=== PATIENT | male | born 1985 | race Caucasian/White ===

== ENCOUNTER 2022-06-14 14:37 | Emergency (ER) | payer OTHER ==
[2022-06-14] MEDS ORDERED: ATARAX 25 MG PO ONE (15:03)
--- NOTE | 2022-06-14 15:08 | ERPHSYRPT ---
- History of Present Illness Source: patient Exam Limitations: no limitations Patient Subjective Stated Complaint: Pt states "My dad is about to pass and I have been in a panic attack for days now." Triage Nursing Assessment: Pt presented alert and oriented X 3, skin wpd.Pt ambulates with an upright steady gait, able to speak in clear full sentences. Pt in no apparent respiratory distress. Pt extremely anxious. Physician History: 36 yo wm w anxiety due to father w terminal illness who is hospitalized. Pt denies suicidal/homicidal ideation. [facility] saw pt and sent him to the ER. He denies h/o anxiety/suicidal attempt-ideation. Timing/Duration: yesterday Severity of Symptoms-Max: moderate Severity of Symptoms-Current: mild Context related to: parent (Parent w terminal illness) Suicidal thoughts: other (Denies) Associated Symptoms: anxiety Previous symptoms: no prior history Allergies/Adverse Reactions: tomato Allergy (Verified 09/26/15 23:13) Hx Tetanus, Diphtheria Vaccination/Date Given: Yes Hx Influenza Vaccination/Date Given: No Hx Pneumococcal Vaccination/Date Given: No Immunizations Up to Date: Yes Travel Risk - International Travel Have you traveled outside of the country in past 3 weeks: No - Coronavirus Screening Are you exhibiting any of the following symptoms?: No Close contact with a COVID-19 positive Pt in past 14-21 Days: No - Vaccine Status Have you recieved a Covid-19 vaccination: Yes [employer]: [employer] - Vaccination Dates Date of 2cond Vaccination (if applicable): 2020 - Past Medical History Pertinent Past Medical History: Yes Psycho-Social History: Attention Deficit Disorder Other Medical History: kidney stones - Past Surgical History Past Surgical History: No - Social History Smoking Status: Current every day smoker How long have you smoked: 18 yrs Exposure to second hand smoke: No Drug Use: marijuana Patient Lives Alone: No - Review of Systems Constitutional: No Symptoms Eyes: No Symptoms Ears, Nose, & Throat: No Symptoms Respiratory: No Symptoms Cardiac: No Symptoms Abdominal/Gastrointestinal: No Symptoms Genitourinary Symptoms: No Symptoms Musculoskeletal: No Symptoms Skin: No Symptoms Neurological: No Symptoms Endocrine: No Symptoms Hematologic/Lymphatic: No Symptoms Immunological/Allergic: No Symptoms - Nursing Vital Signs Nursing Vital Signs: Initial Vital Signs Temperature 99.0 F 06/14/22 14:41 Pulse Rate 88 06/14/22 14:41 Respiratory Rate 22 06/14/22 14:41 Blood Pressure 155/101 06/14/22 14:41 O2 Sat by Pulse Oximetry 95 06/14/22 14:41 Pain Scale Pain Intensity 0 Hypertensive - Physical Exam General Appearance: no apparent distress, alert Eyes, Ears, Nose, Throat Exam: normal ENT inspection, TMs normal, pharynx normal, moist mucous membranes Neck Exam: normal inspection, non-tender, supple, full range of motion, No Brudzinski, No Kernig's, No meningismus Respiratory Exam: normal breath sounds, lungs clear, airway intact Cardiovascular Exam: regular rate/rhythm, normal heart sounds, normal peripheral pulses, capillary refill <2 sec, No murmur Gastrointestinal/Abdominal Exam: soft, normal bowel sounds, No tenderness Extremities Exam: normal inspection, normal range of motion, No evidence of injury Peripheral Pulses: carotid (R): 2+, carotid (L): 2+ Current Suicidality: denies suicide plan, No has suicide plan Neurological Exam: alert, normal mood/affect, calm, tax assistant II-XII nml as tested, oriented x 3 Appearance: appropriate appearance, appropriate insight, neat, no memory impairment, denies illness Behavior/Eye Contact/Speech: alert & cooperative, good eye contact, normal speech Thoughts/Hallucinations: normal thought pattern, no apparent hallucination, No auditory hallucinations, No delusions, No flight of ideas, No grandiose Skin Exam: normal color, warm, dry SpO2 Interpretation: normal SpO2: 95 O2 Delivery: Room Air - Course Nursing assessment & vital signs reviewed: Yes Ordered Tests: Medication Summary Discontinued Medications Generic Name Dose Route Start Last Admin Trade Name Barbara PRN Reason Stop Dose Admin Hydroxyzine HCl 50 mg 06/14/22 15:03 06/14/22 15:10 Hydroxyzine Hcl 25 Mg Tablet PO 06/14/22 15:04 50 mg STAT ONE Administration Hydroxyzine HCl Confirm 06/14/22 15:10 Hydroxyzine Hcl 25 Mg Tablet Administered 06/14/22 15:11 Dose 50 mg .ROUTE .STK-MED ONE - Progress Progress Note: 06/14/22 15:10 50mg po Vistaril Pt most likely has anxiety/grief reaction due to father's terminal illness. He is not suicidal or homicidal and has been seen by the [facility]. Counseled pt/family regarding: diagnosis, need for follow-up - Departure Departure Disposition: Home Clinical Impression: Grief reaction, Anxiety Condition: Stable Critical Care Time: No Referrals: DOCTOR,NO FAMILY [Primary Care Provider] - Follow up/PCP as directed Instructions: Anxiety, Adult (DC) Additional Instructions: Vistaril as needed Follow up with the [facility] Return to ER as needed Prescriptions: hydrOXYzine pamoate [Vistaril] 50 mg PO TID PRN PRN #15 cap PRN Reason: Anxiety
[2022-06-14] MEDS ORDERED: ATARAX 25 MG ONE (15:10)
[2022-06-14 15:31] VITALS: BP 147/96; PULSE 87
[2022-06-14 15:51] VITALS: O2SAT 95
== END 2022-06-14 15:32 | disposition home or self-care (01) ==
LOC: ED 14:37
DX: F43.22 Adjustment disorder with anxiety (principal); Z63.4 Disappearance and death of family member; Z72.0 Tobacco use
CPT/HCPCS: 99281; A9270-GY

== ENCOUNTER 2024-02-24 09:44 | Emergency (ER) | payer BC, OTHER ==
--- NOTE | 2024-02-24 09:53 | ERPHSYRPT ---
- History of Present Illness Time Seen by Provider: 02/24/24 09:49 Source: patient Exam Limitations: no limitations Physician History: 38-year-old male presents to our ED with testicular pain that started 2 days ago. Patient states pain got acutely worse today. Pain described as an ache that is localized to his left testicle radiates to his back. Patient also concern for kidney stones. No trauma no fever. No nausea vomiting or diaphoresis. No dysuria or obvious hematuria. Symptoms are constant. Symptoms are moderate to severe in intensity. Movement of the testicles reproduce pain. Portions of this note were created with voice recognition technology. There may be grammatical, spelling, punctuation or sound alike errors Timing/Duration: today Severity: moderate Associated Symptoms: denies symptoms Allergies/Adverse Reactions: codeine Allergy (Verified 02/24/24 09:49) tomato Allergy (Verified 02/24/24 09:49) Hx Tetanus, Diphtheria Vaccination/Date Given: Yes Hx Influenza Vaccination/Date Given: No Hx Pneumococcal Vaccination/Date Given: No - Review of Systems Constitutional: No Symptoms, No Fever, No Chills Eyes: No Symptoms Ears, Nose, & Throat: No Symptoms Respiratory: No Symptoms, No Cough, No Dyspnea Cardiac: No Symptoms, No Chest Pain, No Edema, No Syncope Abdominal/Gastrointestinal: No Symptoms, No Abdominal Pain, No Nausea, No Vomiting, No Diarrhea Genitourinary Symptoms: No Symptoms, No Dysuria Musculoskeletal: No Symptoms, No Back Pain, No Neck Pain Skin: No Symptoms, No Rash Neurological: No Symptoms, No Dizziness, No Focal Weakness, No Sensory Changes Psychological: No Symptoms Endocrine: No Symptoms Hematologic/Lymphatic: No Symptoms Immunological/Allergic: No Symptoms All Other Systems: Reviewed and Negative - Past Medical History Pertinent Past Medical History: Yes Psycho-Social History: Attention Deficit Disorder Other Medical History: kidney stones - Past Surgical History Past Surgical History: No - Social History Smoking Status: Current every day smoker How long have you smoked: 18 yrs Exposure to second hand smoke: No Drug Use: marijuana Patient Lives Alone: No - Nursing Vital Signs Nursing Vital Signs: Initial Vital Signs Temperature 97.6 F 02/24/24 09:51 Pulse Rate 54 L 02/24/24 09:51 Respiratory Rate 20 02/24/24 09:51 Blood Pressure 164/93 02/24/24 09:51 O2 Sat by Pulse Oximetry 100 02/24/24 09:51 Pain Scale Pain Intensity 6 - Physical Exam General Appearance: no apparent distress, alert Eye Exam: PERRL/EOMI, eyes nml inspection Ears, Nose, Throat Exam: normal ENT inspection, TMs normal, pharynx normal, moist mucous membranes Neck Exam: normal inspection, non-tender, supple, full range of motion Respiratory Exam: normal breath sounds, lungs clear, airway intact, No respiratory distress Cardiovascular Exam: regular rate/rhythm, normal heart sounds, normal peripheral pulses Gastrointestinal/Abdomen Exam: soft, normal bowel sounds, No tenderness, No mass Back Exam: normal inspection, normal range of motion, No CVA tenderness, No vertebral tenderness Extremity Exam: normal inspection, normal range of motion, pelvis stable Neurologic Exam: alert, oriented x 3, cooperative, normal mood/affect, nml cerebellar function, nml station & gait, sensation nml, No motor deficits Skin Exam: normal color, warm, dry, No rash Lymphatic Exam: No adenopathy SpO2 Interpretation: normal O2 Delivery: Room Air - Course Nursing assessment & vital signs reviewed: Yes - CT Exams Abdomen/Pelvis CT Interpretation: Tele-radiologist Report (Fecal stasis diverticulosis) - Radiology Ultrasound Exam Scrotal Ultrasound: discussed w/radiologist (Right testicle normal. Left testicle shows orchitis, reactive hydrocele and malignancy) Ordered Tests: Active Orders 24 hr Category Date Time Status IV Insertion STAT Care 02/24/24 09:50 Active ABDOMEN AND PELVIS W/0 CONTRAS [CT] Stat Exams 02/24/24 09:46 Completed TESTICLE [US] Stat Exams 02/24/24 09:48 Completed CBC W DIFF Stat Lab 02/24/24 10:05 Completed CMP Stat Lab 02/24/24 10:05 Completed UA W/RFX UR CULTURE Stat Lab 02/24/24 10:02 Completed Medication Summary Generic Name Dose Route Start Last Admin Trade Name Freq PRN Reason Stop Dose Admin Ceftriaxone Sodium 1 gm in 100 mls @ 200 mls/hr 02/24/24 12:07 02/24/24 12:13 Rocephin 1 Gm / 100 Ml Nacl IV 02/24/24 12:36 200 mls/hr STAT ONE 200 mls/hr Administration Discontinued Medications Generic Name Dose Route Start Last Admin Trade Name Freq PRN Reason Stop Dose Admin Azithromycin 1,000 mg 02/24/24 12:07 02/24/24 12:16 Azithromycin 250 Mg Tablet PO 02/24/24 12:08 1,000 mg STAT ONE Administration Azithromycin Confirm 02/24/24 12:16 Azithromycin 250 Mg Tablet Administered 02/24/24 12:17 Dose 1,000 mg .ROUTE .STK-MED ONE Ceftriaxone Sodium Confirm 02/24/24 12:11 Rocephin 1 Gm / 100 Ml Nacl Administered 02/24/24 12:12 Dose 1 gm in 100 mls @ ud IV .STK-MED ONE Ketorolac Tromethamine 30 mg 02/24/24 09:51 02/24/24 10:06 Ketorolac Tromethamine 30 Mg/Ml Inj IV 02/24/24 09:52 30 mg STAT ONE Administration Ketorolac Tromethamine Confirm 02/24/24 10:05 Ketorolac Tromethamine 30 Mg/Ml Inj Administered 02/24/24 10:06 Dose 30 mg .ROUTE .STK-MED ONE Lab/Rad Data: Laboratory Result Diagrams 02/24/24 10:05 02/24/24 10:05 Laboratory Results 02/24/24 02/24/24 02/24/24 Range/Units 10:05 10:05 10:02 WBC 7.6 (4.23-9.07) x10^3/uL RBC 4.77 (4.63-6.08) x10^6/uL Hgb 14.3 (13.7-17.5) g/dL Hct 43.4 (40.1-51.0) % MCV 91.0 (79.0-92.2) fL MCH 30.0 (25.7-32.2) pg MCHC 32.9 (32.3-36.5) g/dL RDW 12.9 (11.6-14.4) % Plt Count 252 (163-337) x10^3/uL MPV 9.3 L (9.4-12.4) fL Gran % 64.7 (34.0-67.9) % Immature Gran % (Auto) 0.1 (0.001-0.429) % Nucleat RBC Rel Count 0.0 (0.00-0.2) % Eos # (Auto) 0.08 (0.04-0.54) x10^3/uL Immature Gran # (Auto) 0.01 (0.001-0.031) x10^3u/L Absolute Lymphs (auto) 2.22 (1.32-3.57) x10^3/uL Absolute Monos (auto) 0.33 (0.30-0.82) x10^3/uL Absolute Nucleated RBC 0.00 (0.00-0.012) x10^3u/L Lymphocytes % 29.3 (21.8-53.1) % Monocytes % 4.4 L (5.3-12.2) % Eosinophils % 1.1 (0.8-7.0) % Basophils % 0.4 (0.2-1.2) % Absolute Granulocytes 4.90 (1.78-5.38) x10^3/uL Basophils # 0.03 (0.01-0.08) x10^3/uL Sodium 142 (135-145) mmol/L Potassium 3.8 (3.5-5.1) mmol/L Chloride 106 (98-107) mmol/L Carbon Dioxide 29 (22-30) mmol/L Anion Gap 11.3 (5-15) MEQ/L BUN 14 (9-20) mg/dL Creatinine 0.77 (0.66-1.25) mg/dL Estimated GFR 116.1 ML/MIN Glucose 135 H (74-106) mg/dL Calcium 9.4 (8.4-10.2) mg/dL Total Bilirubin 0.30 (0.2-1.3) mg/dL AST 23 (17-59) U/L ALT 18 (0-50) U/L Alkaline Phosphatase 75 (38-126) U/L Serum Total Protein 7.2 (6.3-8.2) g/dL Albumin 4.2 (3.5-5.0) g/dL Urine Color Dark Yellow (Yellow) Urine Appearance Cloudy A (Clear) Urine pH 5.5 (4.6-8.0) Ur Specific [place] >=1.030 A (1.005-1.030) Urine Protein 30 (Negative) Urine Glucose (UA) Negative (Negative) mg/dL Urine Ketones Trace A (Negative) Urine Blood Negative (Negative) Urine Nitrite Negative (Negative) Urine Bilirubin Negative (Negative) Urine Urobilinogen 1.0 A (0.2) mg/dL Ur Leukocyte Esterase Negative (Negative) U Hyaline Cast (Auto) NONE SEEN (0-2) /LPF Urine Microscopic RBC 3-5 (0-5) /HPF Urine Microscopic WBC 3-5 (0-5) /HPF Ur Epithelial Cells None Seen (None Seen) /HPF Urine Bacteria None Seen (None Seen) /HPF Urine Culture Reflexed NO (NO) - Progress Progress: improved Progress Note: 38-year-old male with left-sided testicular pain. Ultrasound reveals an orchitis possible malignancy. Patient advised of the findings. Patient received a dose of Rocephin in our ED. Patient also received a gram of azithromycin. Patient referred to Dr. Alegria for follow-up. Patient given the contact number for Dr. Allen of urology for follow-up regarding the possible testicular malignancy. Patient advised of the plan of care. A prescription for Toradol forwarded to patient's pharmacy. Patient agrees to follow-up today as planned. He voices no other complaints or concerns at this time. Portions of this note were created with voice recognition technology. There may be grammatical, spelling, punctuation or sound alike errors Complexity of problem addressed is moderate acute complicated. No critical care time. Complex of data reviewed and analyzed is moderate. Test ordered test r eviewed results analyzed and correlated clinically with history and physical exam. Risk of complication and or risk of morbidity/mortality patient management is moderate. A prescription for Toradol forwarded to patient's pharmacy. Vital stable. Time spent to discharge patient approximately 20 mi nutes. Plan of care established for shared decision making. No social determinants of health present impede follow-up. Portions of this note were created with voice recognition technology. There may be grammatical, spelling, punctuation or sound alike errors 02/24/24 12:19 Counseled pt/family regarding: lab results, diagnosis, need for follow-up, rad results - Departure Departure Disposition: Home Clinical Impression: Orchitis, Testicular malignancy Condition: Stable Critical Care Time: No Referrals: ADI ALEGRIA MD [ACTIVE STAFF] - Follow up/PCP as directed DOCTOR,NO FAMILY [Primary Care Provider] - Follow up/PCP as directed BRANDIE ALLEN [COURTESY STAFF] - Follow up/PCP as directed Additional Instructions: Discharge/Care Plan AUREA FLANAGAN was seen on 02/24/24 in the Emergency Room. The patient was counseled regarding Diagnosis,Lab results, Imaging studies, need for follow up and when to return to the Emergency Room. Prescriptions given: Discharge Note I have spoken with the patient and/or caregivers. I have explained the patient's condition, diagnosis and treatment plan based on the information available to me at this time. I have answered the patient's and/or caregiver's questions and addressed any concerns. The patient and/or caregivers have as good understanding of the patient's diagnosis, condition and treatment plan as can be expected at this point. The vital signs have been stable. The patient's condition is stable and appropriate for discharge from the emergency department. The patient will pursue further outpatient evaluation with the primary care physician or other designated or consulting physician as outlined in the discha rge instructions. The patient and/or caregivers are agreeable to this plan of care and follow-up instructions have been explained in detail. The patient and/or caregivers have received these instruction. The patient/and or caregivers are aware that any significant change in condition or worsening of symptoms should prompt an immediate return to this or the closest emergency department or call 911. Prescriptions: Ketorolac Trometh 10 mg Tab [TORAdol 10 MG TABLET] 10 mg PO TID 5 Days #15 tablet
[2024-02-24 09:54] VITALS: RESP 20; TEMP 97.6
[2024-02-24] MEDS ORDERED: TORAdol 30 mg Injection ONE (10:05)
[2024-02-24 10:06] LABS: BASOPHIL % 0.4 % (0.2-1.2); Basophil (Absolute #) 0.03 x10^3/uL (0.01-0.08); Eosinophil % 1.1 % (0.8-7.0); Eosinophil (Absolute #) 0.08 x10^3/uL (0.04-0.54); Hematocrit 43.4 % (40.1-51.0); Hemoglobin 14.3 g/dL (13.7-17.5); IMMATURE GRAN # 0.01 x10^3u/L (0.001-0.031); IMMATURE GRAN % 0.1 % (0.001-0.429); Lymphocyte (Absolute #) 2.22 x10^3/uL (1.32-3.57); Lymphocytes % 29.3 % (21.8-53.1); Mean Corpuscular Hgb Concent. 32.9 g/dL (32.3-36.5); Mean Platelet Volume 9.3 fL (9.4-12.4); Monocyte (Absolute #) 0.33 x10^3/uL (0.30-0.82); Monocytes % 4.4 % (5.3-12.2); Neutrophil % 64.7 % (34.0-67.9); Platelet Count 252 x10^3/uL (163-337); Red Blood Count 4.77 x10^6/uL (4.63-6.08); Red Cell Distribution Width 12.9 % (11.6-14.4); White Blood Count 7.6 x10^3/uL (4.23-9.07)
[2024-02-24] MEDS: TORAdol 30 mg Injection IV ONE (10:06)
[2024-02-24 10:17] LABS: Appearance Cloudy (Clear); Bacteria None Seen /HPF (None Seen); Bilirubin Negative (Negative); Blood Negative (Negative); Epithelial Cells None Seen /HPF (None Seen); Glucose, Urine Negative (Negative); Hyaline Casts NONE SEEN /LPF (0-2); Ketones Trace (Negative); Leukocyte Esterase Negative (Negative); Nitrite Negative (Negative); Ph 5.5 (4.6-8.0); Protein,Urine Dip 30 (Negative); Specific Gravity >=1.030 (1.005-1.030)
[2024-02-24 10:18] LABS: ADD URINE CULTURE? NO (NO)
[2024-02-24 10:19] LABS: ALBUMIN 4.2 g/dL (3.5-5.0); ANION GAP 11.3 MEQ/L (5-15); BILIRUBIN,TOTAL 0.3 mg/dL (0.2-1.3); Calcium 9.4 mg/dL (8.4-10.2); Creatinine 1 0.77 mg/dL (0.66-1.25); EST GLOMERULAR FILTRATION RATE 116.1 ML/MIN; Potassium 3.8 mmol/L (3.5-5.1); Total Protein 7.2 g/dL (6.3-8.2)
--- NOTE | 2024-02-24 11:01 | XRAY ---
Indication: Left scrotal pain. Torsion. Two-dimensional testicular sonogram performed. Comparison: None Right testicle measures 4.3 x 2.5 x 2.7 cm and appears homogeneous echogenicity with normal color perfusion. Left measures 4.8 x 3.0 x 3.1 cm and appears heterogeneous echogenicity with marked hyperemic color flow favoring orchitis. Left scrotal hydrocele presumed reactive. Left testicle also demonstrates 2 foci of heterogeneous echogenicity measuring 1.5 x 1.1 x 1.2 cm and 1.5 x 0.8 x 1.7 cm concerning for testicular masses. Left and right epididymis sonographically unremarkable. No suspicious extra testicular mass. Impression: 1. Negative right testicular sonogram. 2. Abnormal left testicle appearing hyperemic favoring orchitis with reactive hydrocele. Also 2 foci of heterogeneous echogenicity worrisome for malignancy.
[2024-02-24 11:04] VITALS: PULSE 52; O2SAT 98
--- NOTE | 2024-02-24 11:45 | XRAY ---
Indication: Left groin pain. History renal stones. Multiple contiguous axial images obtained through abdomen and pelvis without contrast. Comparison: August 15, 2009 Lung bases again demonstrates scattered subsegmental atelectasis/scarring, right greater than left. No infiltrate or effusion. Heart not enlarged. Noncontrasted stomach and bowel loops appear nonobstructed with normal appendix. There is now mild diffuse scattered colonic fecal debris throughout and scattered colonic diverticulosis without diverticulitis. No free fluid/air. Remaining liver, gallbladder, pancreas, spleen, adrenal glands, kidneys, ureters, and bladder are unremarkable for noncontrast exam. New mild aortoiliac calcifications without AAA. Osseous structures intact. Impression: 1. New mild diffuse fecal stasis and colonic diverticulosis. 2. Remaining CT abdomen/pelvis without contrast exam is negative.
[2024-02-24 12:09] VITALS: BP 134/88
[2024-02-24] MEDS ORDERED: ROCEPHIN 1 GM / 100 ML NaCl 1 GM/100 ML IVPB IV ONE (12:11)
[2024-02-24] MEDS: ROCEPHIN 1 GM / 100 ML NaCl 1 GM/100 ML IVPB IV ONE (12:13)
[2024-02-24] MEDS ORDERED: Zithromax 250 MG TABLET ONE (12:16)
[2024-02-24] MEDS: Zithromax 250 MG TABLET PO ONE (12:16)
== END 2024-02-24 12:51 | disposition home or self-care (01) ==
LOC: ED 09:44
DX: N45.2 Orchitis (principal); C62.92 Malignant neoplasm of left testis, unspecified whether descended or undescended; N50.812 Left testicular pain; Z72.0 Tobacco use
CPT/HCPCS: 36000; 36415; 74176; 76870; 80053; 81001; 85025; 96365; 96374; 99284; J0696; J1885; A9270-GY